=== PATIENT | male | born 1960 | race Caucasian/White ===

== ENCOUNTER 2019-12-23 12:48 | Emergency (ER) | payer MEDICARE, SELFPAY ==
[2019-12-23] VITALS (9 sets, daily range): BP systolic 89–118; BP diastolic 70–84; PULSE 84–90; RESP 13–21; O2SAT 97
--- NOTE | 2019-12-23 13:10 | ED.GENADULT ---
HPI - General Adult General Chief complaint: Unspecified Stated complaint: dizzy Time Seen by Provider: 12/23/19 13:02 Source: patient Mode of arrival: other ([place]) Limitations: physical limitation History of Present Illness HPI narrative: Patient presents via EMS from being found on the side of the road. He was laying down from heat exhaustion. He is traveling from [place] to [place] because we have left COVID here. He has a walker with him. He has a bag of diapers in a bag with his medications. He says he needs to get checked out for his diabetes, heart disease, leg ulcers, abscess on his buttock, and he has not eaten yet today. When I offered to provide lunch, he says he will not build to eat anything I offered because of his multiple food allergies. He has not had any vomiting or diarrhea, fever cough chills or sweats, he does say he has chronic constipation. He has cardiac stents. Surgeries include tonsillectomy, sinus surgery, ear surgery, and the abscess on his buttocks. Related Data Home Medications Medication Instructions Recorded Confirmed famotidine 40 mg PO BID 12/23/19 12/23/19 glipizide 10 mg PO BID 12/23/19 12/23/19 levothyroxine 175 mcg PO DAILY 12/23/19 12/23/19 Allergies Allergy/AdvReac Type Severity Reaction Status Date / Time Beta-Blockers Allergy Confusion Verified 12/23/19 13:24 (Beta-Adrenergic Bloc Proton Pump Inhibitors Allergy Diarrhea Verified 12/23/19 13:24 Review of Systems Review of Systems: Narrative: CONSTITUTIONAL: Denies fever, chills, or sweats. EYES: Denies visual changes, redness, or discharge. He does not have his glasses and says he cannot see without them. ENT: Denies rhinorrhea, congestion, sore throat, or otalgia. CARDIOVASCULAR: Denies chest pain, palpitations, or edema. RESPIRATORY: Denies cough or dyspnea. GASTROINTESTINAL: Denies abdominal pain, nausea, vomiting, or diarrhea. Chronic constipation. GENITOURINARY: Denies dysuria or hematuria. SKIN: Denies rash or itching. MUSCULOSKELETAL: Denies back pain, joint pain, or myalgia. NEUROLOGIC: He has weakness. . All systems reviewed & are unremarkable except as noted in HPI and below PMFSH Past Medical History Medical History Abscess of buttock Coronary artery disease Diabetes GERD (gastroesophageal reflux disease) Homeless Hypothyroidism Leg ulcer Surgical History Surgical History History of heart artery stent History of tonsillectomy Social History Social History (Updated 12/23/19 @ 13:25 by Clara Salinas MD) Smoking status: Never smoker Alcohol intake: never Substance use: never Gender identity (if verbalized by the patient): Male Exam Narrative: Exam Narrative: GENERAL: Thin, cachectic, poor personal hygiene, legs wrapped in bloody bandages. Hair is unkempt. HEAD: Normocephalic, atraumatic. EYES: Wearing sunglasses ENT: Nares clear, no rhinorrhea or epistaxis. Mucous membranes moist. NECK: Supple. CHEST: Clear to auscultation. No respiratory distress. HEART: Regular rate and rhythm. No murmur heard. Normal peripheral pulses. ABDOMEN: Soft, nontender, nondistended, normal active bowel sounds. EXTREMITIES: Normal range of motion. No edema. SKIN: Warm, dry NEURO: No focal deficits. Alert and oriented x3. PSYCH: Flat affect. Course Reevaluation(s) Reevaluation #1: Went back in and undressed all of his wounds with the nurse. His leg ulcers are very shallow.. The rectal abscess is no longer an abscess just a unhealed opening near his anus. Date: 12/23/19 Time: 14:46 Reevaluation #2: Patient is too afraid of COVID to stay in the hospital. He is leaving [facility]. Date: 12/23/19 Time: 14:54 Consultations Consultation #1: Called [facility] for admission to the hospitalist. She agrees to admit. Date: 12/23/19 Time: 14:27 Vital Signs Vital signs: Vital Signs Pulse Rate 86 12/23/19 12
--- NOTE | 2019-12-23 13:20 | ECG_ITS ---
Measurements Intervals [place] Rate: 85 P: 72 AK: 138 QRS: 43 QRSD: 87 T: 72 QT: 357 QTc: 426 Interpretive Statements SINUS RHYTHM BASELINE WANDER- V5-V6 NORMAL ECG Electronically Signed On 12-23-2019 13:22:43 CDT by Brad Beckwith D.O.
[2019-12-23 13:28] LABS: Basophils Percent Auto 1.1 % (0.2-1.2); Eosinophils Absolute Auto 0.2 K/mm3 (0-0.3); Eosinophils Percent Auto 6.6 % (0-4.4); Hematocrit 25.4 % (42.0-52.0); Hemoglobin 8.8 g/dL (14.0-18.0); Immature Platelet Fraction Pct 4.1 % (0.9-11.2); Lymphocytes Absolute Auto 0.51 K/mm3 (0.9-3.2); Lymphocytes Percent Auto 18.7 % (18.3-44.2); Mean Corpuscular HGB Conc 34.6 g/dl (32-36); Mean Corpuscular Hemoglobin 32.6 pg (26-34); Mean Corpuscular Volume 94.1 fl (80-100); Mean Platelet Volume 10.9 fl (7.4-10.4); Monocytes Absolute Auto 0.3 K/mm3 (0.1-0.6); Monocytes Percent Auto 10.6 % (2.6-8.5); Neutrophils Absolute Auto 1.7 K/mm3 (1.3-6.7); Platelet Count Result 98 k/mm3 (150-375); Red Cell Distribution Width 14.1 % (11.5-14.5); White Blood Count 2.7 K/mm3 (4.5-10.0)
[2019-12-23] MEDS: SODIUM CHLORIDE 0.9% IV 1,000 ML 999 ML IV CONT (13:35)
[2019-12-23 13:38] LABS: Alanine Aminotransferase 19 U/L (4-50); Albumin Level 4.3 g/dL (3.5-5.1); Alkaline Phosphatase 119 U/L (38-126); Anion Gap 7 mmol/L (8-16); Aspartate Amino Transferase 37 U/L (17-59); Bilirubin,Total 0.2 mg/dL (0.2-1.3); Blood Urea Nitrogen 36 mg/dL (9-20); Calcium 8.6 mg/dL (8.4-10.2); Carbon Dioxide 19 mmol/L (22-30); Chloride 113 mmol/L (98-107); Creatine Kinase 357 U/L (55-170); Estimated CRCL calculation 24 ml/min; Estimated Glomerular Filt Rate 23; Glucose 170 mg/dL (75-110); Potassium 5.9 mmol/L (3.4-5.0); Sodium 139 mmol/L (137-145)
[2019-12-23 13:41] LABS: Ethanol < 10 mg/dL (<10)
--- NOTE | 2019-12-23 13:42 | PC.NURSE ---
Pt states he can't urinate at this time. He states he has kidney disease and can't go
[2019-12-23 13:50] LABS: NT Pro B Type Natriuretic Pept 916 PG/ML (5-100); Troponin I < 0.012 ng/mL (0.000-0.034)
[2019-12-23 15:04] LABS: Thyroid Stimulating Hormone Reflex > 100.000 uIU/mL (0.465-4.68)
[2019-12-23 15:29] LABS: Free T4 Free Thyroxine Reflex 0.29 ng/dL (0.78-2.19)
== END 2019-12-23 15:05 | disposition left against medical advice (07) ==
PROVIDERS: Emergency Provider Emergency Medicine
DX: E11.9 Type 2 diabetes mellitus without complications (principal); E03.9 Hypothyroidism, unspecified; I25.10 Atherosclerotic heart disease of native coronary artery without angina pectoris; K21.9 Gastro-esophageal reflux disease without esophagitis; D61.818 Other pancytopenia; M62.82 Rhabdomyolysis; I50.9 Heart failure, unspecified; N17.9 Acute kidney failure, unspecified; E87.5 Hyperkalemia; E87.2 Acidosis; I95.9 Hypotension, unspecified; Z59.0 Homelessness
CPT/HCPCS: 36415; 80053; 80307; 82550; 83880; 84439; 84443; 84484; 85025; 85055; 93005; 96360; 99284; J7030